=== PATIENT | female | born 1985 | race Caucasian/White ===

== ENCOUNTER 2016-10-20 15:08 | Emergency (ER) | payer OTHER ==
[~2016-10-20] VITALS: Ht 160 cm; Wt 63.5 kg
[~2016-10-20 15:08] MED LIST: AMBIEN 5 MG TABL5 M1 PO; HYDROCODONE-AP1 EAC6 PO; IBUPROFEN 600600 M1 PO
[2016-10-20] MEDS ORDERED: CLONAZEPAM 1 MG1 M1 PO (15:39)
[2016-10-20] MEDS ORDERED: SUBOXONE 8 MG-1 EAC3 SL (15:39)
[2016-10-20 16:12] LABS: URINE BILIRUBIN NEGATIVE (Negative); URINE BLOOD NEGATIVE (Negative); URINE COLOR YELLOW; URINE GLUCOSE-RANDOM* NEGATIVE (Negative); URINE KETONES NEGATIVE (Negative); URINE NITRITE NEGATIVE (Negative); URINE PROTEIN (DIPSTICK) NEGATIVE (Negative); URINE SPECIFIC GRAVITY <= 1.005 (1.003-1.035); URINE UROBILINOGEN 0.2 E.U./dl (0.2-1.0)
[2016-10-20 16:21] LABS: AMP/METHAMP Negative (Negative); BARBITURATES Negative (Negative); BENZODIAZEPINES Negative (Negative); COCAINE Negative (Negative); METHADONE Negative (Negative); OPIATES Negative (Negative); PCP Negative (Negative); THC Negative (Negative)
[2016-10-20] MEDS ORDERED: PHENERGAN 25 MG25 M1 PO (17:38)
[2016-10-20 17:43] VITALS: BP 130/71
== END 2016-10-20 17:43 | disposition home or self-care (01) ==
LOC: ER 15:08
PROVIDERS: Physician Assistant
DX: F11.23 Opioid dependence with withdrawal (principal); R11.2 Nausea with vomiting, unspecified; F17.210 Nicotine dependence, cigarettes, uncomplicated; F10.99 Alcohol use, unspecified with unspecified alcohol-induced disorder